=== PATIENT | male | born 1990 | race African-American/Black ===

== ENCOUNTER 2021-11-08 11:24 | Emergency (ER) | payer SELFPAY ==
[2021-11-08] MEDS ORDERED: Ketorolac Tromethamine 30 MG/ML VIAL ONE (12:27)
[2021-11-08] MEDS ORDERED: Clindamycin 150 MG CAP ONE (12:28)
== END 2021-11-08 12:35 | disposition home or self-care (01) ==
LOC: CSHERS 11:24
DX: K04.7 Periapical abscess without sinus (principal); F17.210 Nicotine dependence, cigarettes, uncomplicated
CPT/HCPCS: 96372; 99282; J1885

== ENCOUNTER 2025-08-27 18:09 | Emergency (ER) | payer BC, SELFPAY ==
[2025-08-27] MEDS ORDERED: Ibuprofen 200 MG TAB ONE (18:25)
[2025-08-27] MEDS ORDERED: cloNIDine 0.1 MG TAB ONE (18:55)
== END 2025-08-27 20:23 | disposition home or self-care (01) ==
LOC: CSHERS 18:09
DX: S50.01XA Contusion of right elbow, initial encounter (principal); I10 Essential (primary) hypertension; F17.210 Nicotine dependence, cigarettes, uncomplicated; Z55.6 Problems related to health literacy; X50.0XXA Overexertion from strenuous movement or load, initial encounter
CPT/HCPCS: 99283